=== PATIENT | female | born 1990 | race Caucasian/White ===

== ENCOUNTER 2023-11-29 16:15 | Emergency (ER) | payer BC, SELFPAY ==
[2023-11-29 16:25] VITALS: BP 103/47; PULSE 98; RESP 16; TEMP 36.6; O2SAT 99
--- NOTE | 2023-11-29 16:31 | ED.URI ---
HPI - URI/Sore Throat General Chief Complaint: Upper Respiratory Infection Stated Complaint: Fever/Shortness of Breath Source: patient and RN notes reviewed Mode of arrival: ambulatory Limitations: no limitations History of Present Illness HPI Narrative: Patient is a 32-year-old female who presents to the [facility] with complaints of chills and body aches for the last couple days. She denies cough, congestion, sore throat. Denies chest pain or shortness of breath. Denies abdominal pain, nausea, vomiting, diarrhea. She reports that her cousin kids have recently been ill. She reports history of asthma and states that she is a daily smoker. Her respirations are unlabored at this time. She does not appear in any acute distress. Related Data Home Medications Medication Instructions Recorded Confirmed No Home Medications 11/29/23 11/29/23 Allergies Allergy/AdvReac Type Severity Reaction Status Date / Time latex Allergy Unknown Swelling Verified 10/15/19 19:26 morphine Allergy Swelling Verified 10/15/19 19:26 ALBUTEROL SULFATE Allergy Unknown Difficulty Uncoded 10/15/19 19:25 Breathing Review of Systems Review of Systems: CONSTITUTIONAL: Denies fever or sweats. Reports chills. EYES: Denies visual changes, redness, or discharge. ENT: Denies otalgia and sore throat. CARDIOVASCULAR: Denies chest pain, palpitations, or edema. RESPIRATORY: Denies cough or dyspnea. GASTROINTESTINAL: Denies abdominal pain, nausea, vomiting, or diarrhea. GENITOURINARY: Denies dysuria or hematuria. SKIN: Denies rash or itching. MUSCULOSKELETAL: Denies back pain or joint pain. Reports myalgia. NEUROLOGIC: Denies headache, numbness, or weakness. Pertinent positives per HPI. PENDING SALE TO [facility] Past Medical History Medical History Asthma Surgical History Surgical History H/O tubal ligation Social History Social History Smoking status: Current every day smoker Comments At the time of my signature, I reviewed and agree with the nursing past medical, surgical, social, and family history. There is no relevant family history pertinent to the patient complaint. Exam Narrative: GENERAL: This is a well-nourished, well-developed patient, in no apparent distress. HEAD: normocephalic, atraumatic. EYES: Sclera clear/white. Vision is grossly intact. EARS: External ears normal. Hearing grossly intact. NOSE: External nose normal with no obvious nasal discharge, nares without redness, no rhinorrhea. THROAT: Mucous membranes moist, posterior pharynx clear. NECK: Neck supple, non-tender without lymphadenopathy, masses or thyromegaly. CARDIOVASCULAR: Regular rate and rhythm without murmurs, gallops, or rubs. RESPIRATORY: Clear to auscultation. Breath sounds equal bilaterally. No wheezes, rales, or rhonchi. GASTROINTESTINAL: Abdomen soft, non-tender, nondistended. Bowel sounds are active. No hepato-splenomegaly, or palpable masses. No guarding. SKIN: warm, intact with no suspicious lesions or rash, good texture and turgor. NEURO: awake, alert, and oriented to person, place and time. There were no obvious focal neurologic abnormalities. Course Course Level of Care: Express Care Visit Vital Signs Vital signs: Vital Signs Temperature 97.9 F 11/29/23 16:25 Pulse Rate 98 11/29/23 16:25 Respiratory Rate 16 11/29/23 16:25 Blood Pressure 103/47 L 11/29/23 16:25 Pulse Oximetry 99 11/29/23 16:25 Oxygen Delivery Room Air 11/29/23 16:25 Temperature 97.9 F 11/29/23 16:25 Pulse Rate 98 11/29/23 16:25 Respiratory Rate 16 11/29/23 16:25 Blood Pressure 103/47 L 11/29/23 16:25 Pulse Oximetry 99 11/29/23 16:25 Oxygen Delivery Room Air 11/29/23 16:25 Reviewed MDM - URI/Sore Throat MDM Narrative Medical decision making narrative: Viral [place]
== END 2023-11-29 17:00 | disposition home or self-care (01) ==
PROVIDERS: Emergency Provider Nurse Practitioner
DX: B34.9 Viral infection, unspecified (principal); F17.290 Nicotine dependence, other tobacco product, uncomplicated; J45.909 Unspecified asthma, uncomplicated; Z20.822 Contact with and (suspected) exposure to COVID-19
CPT/HCPCS: 87426; 87804; 99203; G0463

== ENCOUNTER 2024-02-14 16:32 | Emergency (ER) | payer BC, SELFPAY ==
[2024-02-14 16:37] VITALS: BP 146/85; PULSE 88; RESP 20; TEMP 37.1; O2SAT 97
--- NOTE | 2024-02-14 16:47 | ED.NAVMDI ---
HPI - Nausea/Vomiting/Diarrhea General Chief complaint: Nausea/Vomiting/Diarrhea Stated complaint: nausea Time Seen by Provider: 02/14/24 16:51 Source: patient and RN notes reviewed Mode of arrival: ambulatory Limitations: no limitations History of Present Illness HPI Narrative: 33-year-old female presents with concern of for 2 day history of nausea, vomiting, diarrhea. Reports symptoms are worse in the morning. Reports she is currently on her menstrual. . She denies abdominal pain, fever, body aches, chills, sweats. Reports sore throat. MD elicited complaint: nausea, vomiting and diarrhea Related Data Allergies Allergy/AdvReac Type Severity Reaction Status Date / Time latex Allergy Unknown Swelling Verified 02/14/24 16:41 morphine Allergy Swelling Verified 02/14/24 16:41 ALBUTEROL SULFATE Allergy Unknown Difficulty Uncoded 10/15/19 19:25 Breathing Review of Systems Review of Systems: CONSTITUTIONAL: Denies malaise, chills, sweats, or fever. ENT: Denies rhinorrhea, congestion, sinus pain, otalgia. Reports sore throat. CARDIOVASCULAR: Denies chest pain, palpitations, or edema. RESPIRATORY: Denies cough or dyspnea. GASTROINTESTINAL: Denies abdominal pain, bloody, or mucous stools. Reports nausea, vomiting, diarrhea GENITOURINARY: Denies dysuria or hematuria. MUSCULOSKELETAL: Denies myalgia. NEUROLOGIC: Denies headache. All systems reviewed & are unremarkable except as noted in HPI and below PMFSH Past Medical History Medical History Asthma Surgical History Surgical History H/O tubal ligation Social History Social History Smoking status: Current every day smoker Comments At time of signature, agree with nursing past medical, surgical, social and family history. There is no relevant family history pertinent to the presenting complaint Exam Narrative: GENERAL: Well-appearing, well-nourished, and in no acute distress. HEAD: Normocephalic, atraumatic. EYES: PERRLA, conjunctivae clear, and EOMI. ENT: Nares clear, turbinates pink, no rhinorrhea or epistaxis. Mucous membranes moist. Oropharynx without edema, erythema, or lesions. Tonsils not enlarged and without exudate. NECK: Supple. No lymphadenopathy CHEST: Speaks in full sentences. No respiratory distress. HEART: Regular rate and rhythm. ABDOMEN: Soft, flat, nondistended, nontender. No guarding, rebound tenderness, or rigidity. No pulsatile masses. Bowel sounds present in all four quadrants. No organomegaly. Negative Mcneil?s sign. No periumbilical tenderness. No Supra public tenderness or distension. Good femoral pulses bilaterally. No hernia noted. No scars or surface trauma. SKIN: Warm, dry, no rash. NEURO: Alert and oriented x3. PSYCH: Normal mood and affect Course Course Emergency Course: Patient is aware of diagnosis, understands and agrees to treatment plan. Anticipatory guidance given. Patient agrees to follow-up as directed and is aware of reasons to seek care at the emergency department. Portions of this record may have been created with voice recognition software Level of Care: Express Care Visit Vital Signs Vital signs: Vital Signs Temperature 98.8 F 02/14/24 16:37 Pulse Rate 88 02/14/24 16:37 Respiratory Rate 20 02/14/24 16:37 Blood Pressure 146/85 H 02/14/24 16:37 Pulse Oximetry 97 02/14/24 16:37 Oxygen Delivery Room Air 02/14/24 16:37 Temperature 98.8 F 02/14/24 16:37 Pulse Rate 88 02/14/24 16:37 Respiratory Rate 20 02/14/24 16:37 Blood Pressure 146/85 H 02/14/24 16:37 Pulse Oximetry 97 02/14/24 16:37 Oxygen Delivery Room Air 02/14/24 16:37 Reviewed. MDM - Nausea/Vomiting/Diarrhea MDM Narrative Medical decision making narrative: I evaluated this patient in the express care. History is obtained from
== END 2024-02-14 17:25 | disposition home or self-care (01) ==
PROVIDERS: Emergency Provider Nurse Practitioner
DX: R11.2 Nausea with vomiting, unspecified (principal); F17.200 Nicotine dependence, unspecified, uncomplicated; J45.909 Unspecified asthma, uncomplicated
CPT/HCPCS: 87081; 87880; 99213; G0463